=== PATIENT | female | born 1985 | race Hispanic/Latino ===

== ENCOUNTER 2024-01-14 19:47 | Emergency (ER) | payer BC ==
[~2024-01-14] VITALS: Ht 160 cm; Wt 106.6 kg
[2024-01-14 19:53] VITALS: PULSE 84; RESP 18; TEMP 97.8
[2024-01-14] MEDS ORDERED: IOPAMIDOL 370 MG/ML 100 ML INFUS..BTL INJ ONE (20:35)
[2024-01-14] MEDS: Morphine 4mg INJECTION 4 MG/ML INJ IV ONE ×2 (20:40→22:47)
[2024-01-14] MEDS: ONDANSETRON HCL INJ 2MG/ML 2ML 2 MG/ML VIAL IV STA (20:41)
[2024-01-14] MEDS: SODIUM CHLORIDE 0.9% 1000ML 1,000 ML IV ONE (20:41)
[2024-01-15] MEDS ORDERED: ONDANSETRON ODT4 MG PO (00:09)
[2024-01-15 00:43] VITALS: BP 134/68; PULSE 76; RESP 18; TEMP 98; O2SAT 99
== END 2024-01-15 00:15 | disposition home or self-care (01) ==
LOC: FSED 20:15
DX: R10.11 Right upper quadrant pain (principal); K80.20 Calculus of gallbladder without cholecystitis without obstruction; I10 Essential (primary) hypertension; E66.9 Obesity, unspecified
CPT/HCPCS: 74177; 76705; 80048; 80076; 81003; 81025; 85025; 99283; J2270; J2405; J7030; Q9967